=== PATIENT | female | born 1985 | race African-American/Black ===

== ENCOUNTER 2017-06-01 10:44 | Emergency (ER) | payer MEDICAID ==
--- NOTE | 2017-06-01 12:32 | XRAY Preliminary Report ---
Exam: XR Ankle 3 View RT IMPRESSION: Normal right ankle radiography. No significant change. [facility] SITE ID: [id number]
--- NOTE | 2017-06-01 12:35 | XRAY Report ---
EXAM: RIGHT ANKLE RADIOGRAPHY EXAM DATE: 06/01/2017 11:41 AM. CLINICAL HISTORY: Right ankle injury. COMPARISON: Right ankle series 11/17/2013. TECHNIQUE: 3 views. FINDINGS: Bones: Normal. No fractures or bone lesions. Joints: Normal. No effusion. No subluxations. The ankle mortise is normally aligned. Soft Tissues: Normal. No soft tissue swelling. IMPRESSION: Normal right ankle radiography. No significant change. [facility] Referring Provider Line: [phone] SITE ID: [id number]
--- NOTE | 2017-06-01 12:48 | ED Physician Documentation ---
PD HPI LOWER EXT INJURY - Stated complaint Stated Complaint: R ANKLE INJURY - Chief complaint Chief Complaint: Ext Problem - History obtained from History obtained from: Patient - History of Present Illness PD HPI LOW EXT INJURY LOCATION: Right, Ankle Type of injury: Twist Where injury occurred: Home Timing - onset: Yesterday Worsened by: Moving, Palpating, Other (weightbearing) Associated symptoms: Swelling Similar symptoms before: Has not had sx before - Additional information Additional information: The patient is a 31-year-old female who twisted her right ankle yesterday when her patella "slipped" and she fell. She has had pain with weightbearing since that time. She denies any other injuries. Her past history is significant for patellar dislocation. Review of Systems Constitutional: denies: Fever Nose: denies: Congestion Cardiac: denies: Chest pain / pressure Respiratory: denies: Dyspnea GI: denies: Abdominal Pain Skin: denies: Rash Musculoskeletal: reports: Joint pain (right ankle). denies: Back pain Neurologic: reports: Head injury. 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: Ovarian cysts : Other HEENT: None Psych: Anxiety Musculoskeletal: Fatigue, Chronic back pain Derm: Eczema - Past Surgical History Past Surgical History: Yes /QUILTING SUPERVISOR: Hysterectomy - Present Medications Home Medications: Ambulatory Orders Medication Instructions Recorded Confirmed No Known Home Medications [No 06/01/17 06/01/17 Known Home Medications] - Allergies Allergies/Adverse Reactions: Allergies Allergy/AdvReac Type Severity Reaction Status Date / Time morphine Allergy Severe Itchy/Swoll Verified 12/04/15 17:59 en propoxyphene napsylate * Allergy Severe Hallucinati Verified 12/04/15 17:59 [From Darvocet-N 100] ons oxycodone HCl * AdvReac Severe Hallucinati Verified 12/04/15 17:59 [From Percocet] ons - Social History Does the pt smoke?: No Smoking Status: Never smoker Does the pt drink ETOH?: No Does the pt have substance abuse?: No - Immunizations Immunizations are current?: Yes - POLST Patient has POLST: No PD ED PE NORMAL - Vitals Vital signs reviewed: Yes (normal) - General General: Alert and oriented X 3, Well developed/nourished - HEENT HEENT: Atraumatic - Neck Neck: No bony TTP - Respiratory Respiratory: No respiratory distress - Back Back: No spinal TTP - Derm Derm: No rash - Extremities Extremities: No edema, No calf tenderness / cord, Other (There is swelling and tenderness to palpation over the lateral aspect of the right ankle, including the posterior aspect of the lateral malleolus. There is no tenderness over the medial malleolus, the posterior malleolus, the fifth metatarsal base, or the proximal fibula. Distal neurovascular is intact.) - Neuro Neuro: Alert and oriented X 3, No motor deficit, No sensory deficit Results - Vitals Vitals: Oxygen O2 Source Room air - Rads (name of study) Right ankle Radiology: Prelim report reviewed, EMP read contemporaneously, See rad report ( Normal right ankle radiography.) Procedures - Splint (location) Lower extremity right Splint applied by: Tech Type of splint: Ankle airsplint Other: Patient tolerated well, No complications, Neurovascular intact, Crutches provided PD MEDICAL DECISION MAKING - ED course Complexity details: reviewed results, re-evaluated patient, considered differential, d/w patient, d/w family ED course: The patient's presentation is significant for right ankle sprain. X-ray reveals no evidence of fracture or dislocation. Treatment in the emergency department included administration of ibuprofen 800 mg orally. An ankle air splint was applied, and crutches were dispensed. I discussed with the patient and her the expected course of injury, symptomatic treatment and outpatient follow-up, as well as potentially worrisome signs or symptoms that should prompt reevaluation in the emergency department. Departure - Departure Disposition: 01 Home, Self Care Clinical Impression: Right ankle sprain Qualifiers: Encounter type: initial encounter Involved ligament of ankle: tibiofibular ligament Qualified Code(s): S93.431A - Sprain of tibiofibular ligament of right ankle, initial encounter Condition: Stable Instructions: ED Sprain Ankle W X Ray Follow-Up: [facility] [Provider Group] Comments: Keep your right leg elevated as much of the time as possible. Apply ice pack to your right ankle intermittently for the next 3 days. You can use ibuprofen, up to 800 mg 3 times daily, if needed for pain. Let pain be her guide to activity level. Follow-up with your primary physician within 2 weeks. Call to schedule an appointment. Return to the emergency department if you develop markedly increasing pain or swelling, or otherwise worsening symptoms. Discharge Date/Time: 06/01/17 12:59
[2017-06-01] MEDS ORDERED: IBUPROFEN 800 MG TABLET PO STA (12:51)
[2017-06-01 12:56] VITALS: BP 122/78
[2017-06-01] MEDS ORDERED: IBUPROFEN 800 MG TABLET PO ONE (12:57)
== END 2017-06-01 12:59 | disposition home or self-care (01) ==
LOC: ED 10:44
DX: S93.431A Sprain of tibiofibular ligament of right ankle, initial encounter (principal); W01.0XXA Fall on same level from slipping, tripping and stumbling without subsequent striking against object, initial encounter; Y92.239 Unspecified place in hospital as the place of occurrence of the external cause; X50.1XXA Overexertion from prolonged static or awkward postures, initial encounter
CPT/HCPCS: 73610; 99283; A9270

== ENCOUNTER 2018-05-12 16:28 | Outpatient (CLI) | payer MEDICAID ==
--- NOTE | 2018-05-13 22:35 | MRI Report ---
Procedure Date: 05/12/2018 Accession Number: [id number] / [id number] Procedure: MRI - Knee RT W/O CPT Code: FULL RESULT: EXAM: RIGHT KNEE MRI WITHOUT CONTRAST EXAM DATE: 05/12/2018 04:59 PM. CLINICAL HISTORY: Knee joint pain, right. COMPARISON: Radiographs 05/01/2018. TECHNIQUE: Multiplanar, multisequence T1-weighted and fluid-sensitive sequences of the knee without contrast. Other: None. FINDINGS: Bones: No fracture or bone lesion. Minimal reactive edema in medial compartment. Mild lateral patellar subluxation. Trochlear groove depth within normal limits. Tibial tubercle to trochlear groove distance measures 1.9 cm. Articular Cartilage: Shallow partial-thickness cartilage loss medial compartment. Shallow partial-thickness loss and irregularity/fissuring lateral patellar facet. Subtle irregularity at the superior aspect lateral trochlea. Medial Meniscus: Degenerative fraying at the free edge of the body. No discrete fluid-filled tear. Lateral Meniscus: The lateral meniscus is intact. Cruciate Ligaments: The anterior and posterior cruciate ligaments are intact. Collateral Ligaments: The medial collateral and lateral collateral ligamentous structures are intact. Tendons: The quadriceps, patellar, semimembranosus, and popliteus tendons are unremarkable. Musculature: No edema or fatty atrophy. Other: Small joint effusion. No popliteal cyst. No loose bodies. The medial and lateral retinacula are intact. The subcutaneous tissues and fat pads are unremarkable. IMPRESSION: 1. 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 2. Degenerative fraying medial meniscal body. 3. Small joint effusion. [facility] MUSCULOSKELETAL RADIOLOGY SECTION
== END 2018-05-12 16:29 | disposition home or self-care (01) ==
LOC: DI 16:28
PROVIDERS: ATTEND Orthopaedic Surgery
DX: M94.261 Chondromalacia, right knee (principal); M25.461 Effusion, right knee

== ENCOUNTER 2018-12-19 10:26 | Emergency (ER) | payer MEDICAID ==
[2018-12-19 10:42] VITALS: BP 123/72
--- NOTE | 2018-12-19 12:10 | ED Physician Documentation ---
PD HPI HEENT - Stated complaint Stated Complaint: EAR PX - Chief complaint Chief Complaint: Heent - History obtained from History obtained from: Patient - History of Present Illness Timing - onset: Other (She has had left ear pain with muffled hearing for about the last week. It started around the same time that she accidentally kind of head butted her son while they were both reaching for the same thing. She denies cough or cold symptoms and there is no fever. She never had this before. It does not increase with chewing.) Review of Systems Constitutional: reports: Reviewed and negative Ears: reports: Loss of hearing, Ear pain. 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: Ovarian cysts : Other HEENT: None Psych: Anxiety Musculoskeletal: Fatigue, Chronic back pain Derm: Eczema - Past Surgical History Past Surgical History: Yes /COMPUTATIONAL MATHEMATICIAN: Hysterectomy - Present Medications Home Medications: Ambulatory Orders Medication Instructions Recorded Confirmed Hydrocodone/Acetaminophen 1 - 2 each PO Q6H PRN #10 tablet 12/19/18 [Hydrocodon-Acetaminophen 5-325] Neomycin/Polymyx/Hc Otic Drops 4 drops OT TID 7 Days #1 bottle 12/19/18 [Cortisporin Ear Susp] - Allergies Allergies/Adverse Reactions: Allergies Allergy/AdvReac Type Severity Reaction Status Date / Time morphine Allergy Severe Itchy/Swoll Verified 12/19/18 10:42 en propoxyphene napsylate * Allergy Severe Hallucinati Verified 12/19/18 10:42 [From Darvocet-N 100] ons oxycodone HCl * AdvReac Severe Hallucinati Verified 12/19/18 10:42 [From Percocet] ons - Social History Does the pt smoke?: No Smoking Status: Never smoker Does the pt drink ETOH?: No Does the pt have substance abuse?: No - Immunizations Immunizations are current?: Yes - POLST Patient has POLST: No PD ED PE NORMAL - Vitals Vital signs reviewed: Yes - General General: Alert and oriented X 3, No acute distress - HEENT HEENT: Other (Mod L external otitis, no mastoid TTP.) - Neck Neck: Supple, no meningeal sign, No bony TTP - Neuro Neuro: Alert and oriented X 3, Normal speech Results - Vitals Vitals: Vital Signs - 24 hr 12/19/18 10:38 Temperature 36.5 C Heart Rate 88 Respiratory 16 Rate Blood Pressure 123/72 O2 Saturation 99 Oxygen O2 Source Room air Departure - Departure Disposition: 01 Home, Self Care Clinical Impression: Otitis externa Qualifiers: Otitis externa type: other infective Chronicity: acute Laterality: left Qualified Code(s): H60.392 - Other infective otitis externa, left ear Condition: Good Record reviewed to determine appropriate education?: Yes Instructions: ED Otitis Externa Prescriptions: Hydrocodone/Acetaminophen [Hydrocodon-Acetaminophen 5-325] 1 - 2 each PO Q6H PRN #10 tablet PRN Reason: pain Neomycin/Polymyx/Hc Otic Drops [Cortisporin Ear Susp] 4 drops OT TID 7 Days #1 bottle Comments: Call your doctor to arrange a follow-up appointment, make the next available appointment. In the interim, return anytime if worse or if new symptoms develop.
== END 2018-12-19 12:16 | disposition home or self-care (01) ==
LOC: ED 10:26
DX: H60.392 Other infective otitis externa, left ear (principal)
CPT/HCPCS: 99283

== ENCOUNTER 2019-08-22 09:01 | Outpatient (CLI) | payer MEDICAID ==
[2019-08-22 11:56] LABS: BASOPHILS % (AUTO) 0.5 %; EOSINOPHILS % (AUTO) 0.5 %; HGB - HEMOGLOBIN 12.5 g/dL (12.0-16.0); LYMPHOCYTES # (AUTO) 1.3 10^3/uL (1.5-3.5); LYMPHOCYTES % (AUTO) 35.4 %; MEAN CORPUSCULAR HEMOGLOBIN 26.4 pg (27.0-31.0); MEAN CORPUSCULAR HGB CONC 31.1 g/dL (32.0-36.0); MEAN CORPUSCULAR VOLUME 84.8 fL (81.0-99.0); MEAN PLATELET VOLUME 11.5 fL (7.9-10.8); MONOCYTES # (AUTO) 0.3 10^3/uL (0.0-1.0); MONOCYTES % (AUTO) 6.6 %; NEUTROPHILS # (AUTO) 2.2 10^3/uL (1.5-6.6); PLT - PLATELET COUNT 179 10^3/uL (130-450); RED BLOOD COUNT 4.74 10^6/uL (4.20-5.40); RED CELL DISTRIBUTION WIDTH 13.5 % (12.0-15.0); WHITE BLOOD COUNT 3.8 x10^3/uL (4.8-10.8)
[2019-08-22 12:22] LABS: ALBUMIN 4.5 g/dL (3.2-5.5); ALBUMIN/GLOBULIN RATIO 1.3 (1.0-2.2); ALKALINE PHOSPHATASE 47 IU/L (42-121); ALT ALANINE AMINOTRANSFERASE 13 IU/L (10-60); AST ASPARTATE AMINOTRANSFERASE 15 IU/L (10-42); BILIRUBIN,TOTAL 0.7 mg/dL (0.2-1.0); BUN - BLOOD UREA NITROGEN 11 mg/dL (6-20); CALCIUM 9.3 mg/dL (8.5-10.3); CARBON DIOXIDE - CO2 22 mmol/L (21-32); CHLORIDE 109 mmol/L (101-111); CHOL/HDL RATIO 3.3 (<4.4); CHOLESTEROL 156 mg/dL; CREATININE 0.7 mg/dL (0.4-1.0); GFR - MDRD 115 (>89); GLUCOSE 87 mg/dL (70-100); HDL CHOLESTEROL 48 mg/dL; LDL CHOLESTEROL,CALCULATED 99 mg/dL; LDL/HDL RATIO 2.1 (<4.4); SODIUM 139 mmol/L (135-145); TOTAL PROTEIN 8.1 g/dL (6.7-8.2); VLDL CHOLESTEROL 9 mg/dL
== END 2019-08-22 23:59 | disposition home or self-care (01) ==
LOC: LAB.N 09:01
PROVIDERS: ATTEND Nurse Practitioner Gerontology
DX: Z13.9 Encounter for screening, unspecified (principal)
CPT/HCPCS: 36415; 80053; 80061; 81599; 83721; 84443; 85025; 86382; 86704; 86735; 86762; 86765; 86787

== ENCOUNTER 2020-01-20 11:49 | Outpatient (CLI) | payer MEDICAID ==
[2020-01-22 12:02] LABS: HEPATITIS C ANTIBODY NON-REACTIVE (NON-REACTIVE)
[2020-01-22 13:47] LABS: HIV AG/AB 4TH GEN NON-REACTIVE (NON-REACTIVE)
== END 2020-01-20 23:59 | disposition home or self-care (01) ==
LOC: LAB.N 11:49
PROVIDERS: ATTEND Nurse Practitioner Gerontology
DX: R63.4 Abnormal weight loss (principal); R53.83 Other fatigue
CPT/HCPCS: 36415; 84443; 86803; 87389

== ENCOUNTER 2020-01-24 10:28 | Outpatient (CLI) | payer MEDICAID | END 2020-01-24 23:59 | disposition home or self-care (01) | LOC: LAB.R 10:28 | PROVIDERS: ATTEND Nurse Practitioner Obstetrics & Gynecology | DX: R35.0 Frequency of micturition (principal) | CPT/HCPCS: 87086 ==

== ENCOUNTER 2020-02-19 17:04 | Outpatient (CLI) | payer MEDICAID | END 2020-02-19 17:05 | disposition home or self-care (01) | LOC: COV 17:04 | PROVIDERS: ATTEND Family Medicine | DX: R50.9 Fever, unspecified (principal) ==

== ENCOUNTER 2020-05-26 07:00 | Outpatient (CLI) | payer MEDICAID | END 2020-05-26 23:59 | disposition home or self-care (01) | LOC: LAB.R 07:00 | PROVIDERS: ATTEND Advanced Practice Midwife | DX: Z87.440 Personal history of urinary (tract) infections (principal) | CPT/HCPCS: 87086; 87181 ==

== ENCOUNTER 2022-08-02 08:00 | Outpatient (CLI) | payer MEDICAID | END 2022-08-02 23:59 | disposition home or self-care (01) | LOC: LAB.N 08:00 | PROVIDERS: ATTEND Registered Nurse | DX: N30.00 Acute cystitis without hematuria (principal) | CPT/HCPCS: 87086 ==

== ENCOUNTER 2023-02-23 09:00 | Outpatient (CLI) | payer MEDICAID | END 2023-02-23 09:15 | disposition home or self-care (01) | LOC: LAB.N 09:00 | PROVIDERS: ATTEND Physician Assistant | DX: N30.00 Acute cystitis without hematuria (principal) | CPT/HCPCS: 87077; 87086; 87181 ==

== ENCOUNTER 2024-08-07 08:00 | Outpatient (CLI) | payer MEDICAID | END 2024-08-07 23:59 | disposition home or self-care (01) | LOC: LAB.N 08:00 | PROVIDERS: ATTEND Physician Assistant | DX: R30.0 Dysuria (principal) | CPT/HCPCS: 87077; 87086; 87181 ==